=== PATIENT | male | born 2000 | race African-American/Black ===

== ENCOUNTER 2021-03-21 15:40 | Emergency (ER) | payer SELFPAY ==
[~2021-03-21] VITALS: Ht 180.3 cm; Wt 62.9 kg
[2021-03-21] MEDS ORDERED: IBUPROFEN 600 MG TAB PO ONE (16:14)
[2021-03-21] MEDS ORDERED: ACETAMINOPHEN 325 MG TAB PO ONE (16:15)
[2021-03-21] MEDS ORDERED: ONDANSETRON ODT4 MG PO (16:43)
== END 2021-03-21 16:52 | disposition home or self-care (01) ==
LOC: FSED 16:14
DX: R50.9 Fever, unspecified (principal); R11.2 Nausea with vomiting, unspecified; B34.9 Viral infection, unspecified
CPT/HCPCS: 83518; 99283